=== PATIENT | male | born 1985 | race Caucasian/White ===

== ENCOUNTER → 2020-12-22 11:09 | Outpatient (BNVA) | payer SELFPAY | PROVIDERS: Visit Provider Registered Nurse Neonatal Intensive Care | DX: J02.9 Acute pharyngitis, unspecified (principal); J02.0 Streptococcal pharyngitis | CPT/HCPCS: 87880 ==

== ENCOUNTER 2023-01-08 20:29 | Emergency (ER) | payer SELFPAY ==
[2023-01-08 20:34] VITALS: BP 150/105; PULSE 84; RESP 15; TEMP 36.6; O2SAT 96; BMI 31.3
[2023-01-08 20:38] VITALS: BP 123/73; PULSE 65; RESP 16; TEMP 36.9; O2SAT 98; BMI 31.3
[2023-01-08 20:59] LABS: Basophils # 0.1 10^3/uL (0.0-0.1); Basophils % 0.9 %; Eosinophils # 0.6 10^3/uL (0.0-0.8); Eosinophils % 6.4 %; Hematocrit 43.7 % (37-53); Lymphocytes # 3.4 10^3/uL (0.8-4.8); Lymphocytes % 34.7 %; Mean Corpuscular HGB Conc 36.2 g/dL (30-55); Mean Corpuscular Hemoglobin 29.9 pg (27-33); Mean Corpuscular Volume 82.8 fl (82-101); Mean Platelet Volume 11.1 fL (7.4-10.4); Monocytes # 0.7 10^3/uL (0.2-0.9); Monocytes % 6.8 %; Neutrophils # 5.01 10^3/uL (1.8-7.7); Neutrophils % 50.9 %; Nucleated Red Blood Cells % 0 %; Platelet Count 220 10^3/cmm (157-399); Red Blood Count 5.28 10^6/uL (3.85-5.65); Red Cell Distribution Width 12.6 % (12.1-15.1); White Blood Count 9.85 10^3/uL (3.29-11.43)
[2023-01-08 21:23] LABS: Alanine Aminotransferase 77 U/L (0-41); Albumin Level 4.9 g/dL (3.5-5.2); Alkaline Phosphatase 98 U/L (40-130); Anion Gap 14.7 (5-19); Aspartate Amino Transferase 32 U/L (0-40); Blood Urea Nitrogen 9 mg/dL (6-20); Calcium 9.4 mg/dL (8.5-10.5); Carbon Dioxide 27 mmol/L (22-29); Chloride 103 mmol/L (98-107); Globulin 2.3 g/dL (1.3-4.6); Glomerular Filtration Rate 74.9 mL/min (90-130); Glucose 99 mg/dL (65-115); Osmolality Calculated 291 mOsm/kg (285-295); Potassium 3.7 mmol/L (3.5-5.1); Sodium 141 mmol/L (136-145); Total Bilirubin 0.7 mg/dL (0.15-1.2); Total Protein 7.2 g/dL (6.6-8.7)
--- NOTE | 2023-01-08 22:10 | ED_ITS ---
HPI - Eye Problem General: Chief complaint: Eye Problems Stated complaint: right eye injury Time Seen by Provider: 01/08/23 21:09 Source: patient Mode of arrival: ambulatory Limitations: no limitations History of Present Illness: Patient presents to the emergency department today for evaluation treatment of injury sustained to his right eye. Patient states that just prior to his arrival he was working-patient works for himself, and a bungee cord snapped back into his face and impacted his right eye. He states almost immediately he had blurry vision which progressed and only being able to see shadows. He states since that time his vision has been improving and continues to improve. He reports it is still somewhat blurry but states he typically wears corrective lenses. He was wearing his contacts at the time of the injury but did remove the right contact. Review of Systems General: Reports: 10 or more systems reviewed and unremarkable except in HPI and below PFSH ED PFSH: Social History Smoking and tobacco status: never smoked Physical Exam Const: COMMON NORMALS: no acute distress, patient oriented x3 and alert HENMT: COMMON NORMALS: normocephalic, atraumatic, hearing grossly normal bilaterally and moist oral mucous membranes HEAD & SCALP: normocephalic and atraumatic Eye: OTHER: Patient right conjunctive a moderately injected. No signs of obvious wounds to the cornea or conjunctive at this time. Patient has obvious small hyphema to the right anterior chamber. Bansal lamp examination revealed a very small-almost puncta like abrasion to the most superior portion of the right cornea. No signs of globus rupture. Neck/C-Spine: COMMON NORMALS: no JVD Lymph: LYMPHATIC: no lymphadenopathy noted Resp: COMMON NORMALS: normal respiratory effort, No retractions and No use of accessory muscles Cardio: COMMON NORMALS: no JVD, regular rate and regular rhythm RATE: regular rate RHYTHM: regular rhythm GI: COMMON NORMALS: Normal to inspection, nondistended, normoactive bowel sounds present : COMMON NORMALS: Yes no CVA tenderness BLADDER/KIDNEY EXAM: Yes no CVA tenderness Back/Pelvis: COMMON NORMALS: no CVA tenderness and thoraco-lumbar ROM normal Extremity: COMMON NORMALS: normal to inspection, full ROM and capillary refill normal Neuro: COMMON NORMALS: patient oriented x3 SENSORIUM/ORIENTATION: Yes alert Psych: COMMON NORMALS: mental status grossly normal, cooperative, normal affect and activity/motor behavior normal Course Vital Signs: Vital signs: Vital Signs Temperature 98.4 F 01/08/23 20:38 Pulse Rate 65 01/08/23 20:38 Respiratory Rate 16 01/08/23 20:38 Blood Pressure 123/73 01/08/23 20:38 Pulse Oximetry 98 01/08/23 20:38 Oxygen Delivery Me thod Room Air 01/08/23 20:38 MDM - Eye Problem Medical Decision Making Initial exam of the patient shows obvious bleeding into the anterior chamber. No signs of obvious globus disrupter and no large trauma to the conjunctive a such as laceration visible. I did get a second opinion from Dr. Bailey who agrees there appears to be no signs of a globus rupture. We performed Bansal lamp examination and patient had a very small, almost punctate like abrasion noted to the most superior portion of the cornea. No other signs of stain uptake. Dr. Bailey recommended getting in touch with Dr. Josef De La Cruz with ophthalmology. I was able to discuss with him the patient's case and he recommended starting treatment with Pred forte and requested patient be seen in his clinic tomorrow. I will place a referral through case management but will also provide the patient the office phone number for him to call first thing in the morning to make his follow-up appointment. Patient was offered but declines any further pain medication indicating pain is well controlled. Patient verbalizes understanding and agreement to treatment plan. Differential Diagnosis Likely corneal abrasion and hyphema; Unlikely conjunctivitis, acute iritis, subconjunctival hemorrhage, corneal ulcer or ruptured globe Lab Data 01/08/23 20:53 01/08/23 20:53 Laboratory Results WBC 9.85 10^3/uL (3.29-11.43) 01/08/23 20:53 RBC 5.28 10^6/uL (3.85-5.65) 01/08/23 20:53 Hgb 15.80 g/dL (11.27-16.99) 01/08/23 20:53 Hct 43.7 % (37-53) 01/08/23 20:53 MCV 82.8 fl (82-101) 01/08/23 20:53 MCH 29.9 pg (27-33) 01/08/23 20:53 MCHC 36.2 g/dL (30-55) 01/08/23 20:53 RDW 12.6 % (12.1-15.1) 01/08/23 20:53 Plt Count 220 10^3/cmm (157-399) 01/08/23 20:53 MPV 11.1 fL (7.4-10.4) H 01/08/23 20:53 Neut % (Auto) 50.9 % 01/08/23 20:53 Lymph % (Auto) 34.7 % 01/08/23 20:53 Blair % (Auto) 6.8 % 01/08/23 20:53 Eos % (Auto) 6.4 % 01/08/23 20:53 Baso % (Auto) 0.9 % 01/08/23 20:53 Neut # (Auto) 5.01 10^3/uL (1.8-7.7) 01/08/23 20:53 Lymph # (Auto) 3.4 10^3/uL (0.8-4.8) 01/08/23 20:53 Blair # (Auto) 0.7 10^3/uL (0.2-0.9) 01/08/23 20:53 Eos # (Auto) 0.6 10^3/uL (0.0-0.8) 01/08/23 20:53 Baso # (Auto) 0.1 10^3/uL (0.0-0.1) 01/08/23 20:53 Nucleated RBC % (auto) 0 % 01/08/23 20:53 Nucleated RBCs # 0.0 /100WBC 01/08/23 20:53 Sodium 141 mmol/L (136-145) 01/08/23 20:53 Potassium 3.7 mmol/L (3.5-5.1) 01/08/23 20:53 Chloride 103 mmol/L (98-107) 01/08/23 20:53 Carbon Dioxide 27 mmol/L (22-29) 01/08/23 20:53 Anion Gap 14.7 (5-19) 01/08/23 20:53 BUN 9 mg/dL (6-20) 01/08/23 20:53 Creatinine 1.1 mg/dL (0.7-1.2) 01/08/23 20:53 GFR Calculation 74.9 mL/min (90-130) L 01/08/23 20:53 Glucose 99 mg/dL (65-115) 01/08/23 20:53 Calculated Osmolality 291 mOsm/kg (285-295) 01/08/23 20:53 Calcium 9.4 mg/dL (8.5-10.5) 01/08/23 20:53 Total Bilirubin 0.7 mg/dL (0.15-1.2) 01/08/23 20:53 AST 32 U/L (0-40) 01/08/23 20:53 ALT 77 U/L (0-41) H 01/08/23 20:53 Alkaline Phosphatase 98 U/L (40-130) 01/08/23 20:53 Total Protein 7.2 g/dL (6.6-8.7) 01/08/23 20:53 Albumin 4.9 g/dL (3.5-5.2) 01/08/23 20:53 Globulin 2.3 g/dL (1.3-4.6) 01/08/23 20:53 No radiology studies performed this visit Discharge Plan Discharge Patient Disposition: Home Clinical Impression: Hyphema Condition: Stable Prescriptions: No Action amoxicillin 500 mg capsule 500 mg PO BID 10 Days Qty: 20 0RF Discharge Orders: Discharge ED (Routine); Ordered 01/08/23 Ordered By: Rabia Rollins Referrals: Josef De La Cruz [Physician] - (to be seen in clinic 01/09) Discharge Diet: Usual diet Discharge Activity: Limit activity as instructed Patient Instructions: Hyphema (ED) Activity Restrictions/Additional Instructions: Examination today does show some bleeding in your anterior chamber of your right eye. I reached out to the driver license reviewing officer who agrees a more in-depth examination of your eye is warranted and would like to see you in his clinic [place]. I have placed a referral but I am providing you the contact information for his office as you need to call first thing in the morning to make them aware of his request to have you seen and evaluated tomorrow. Until then, he has requested we provide you an eyedrop. Place 1 drop in your right eye every 6 hours until you are seen by ophthalmology. Dr Josef De La Cruz Phone:?[phone] Address: [address] [place] [address] , [facility], [id number] Coding Level of Care Code ED Prosthodontist/Educator for Aidan Munoz
[2023-01-08] MEDS: prednisoLONE 1% Op Susp 5 mL Btl 1 DROP EYE-RIGHT (22:41)
[2023-01-08] MEDS: fluorescein 1 mg Strip EYE-RIGHT (22:47)
[2023-01-08 22:48] VITALS: BP 125/83; PULSE 83; RESP 20; O2SAT 97
[2023-01-08] MEDS: tetracaine 0.5% Op Soln 4 mL Btl 1 DROP EYE-RIGHT (22:48)
== END 2023-01-08 22:51 | disposition home or self-care (01) ==
PROVIDERS: Emergency Provider Physician Assistant
DX: H21.01 Hyphema, right eye (principal)
CPT/HCPCS: 36415; 80053; 85025; 99284